=== PATIENT | female | born 1965 | race Caucasian/White ===

== ENCOUNTER 2020-07-20 07:29 | Day surgery (SDC) | payer BC, SELFPAY ==
[~2020-07-20] VITALS: Ht 170.2 cm; Wt 127.9 kg
[2020-07-20] MEDS ORDERED: SIMETHICONE 40 MG/0.6 ML ML ONE (07:47)
[2020-07-20] MEDS: MIDAZOLAM HCL 5 MG/5 ML VIAL ONE ×4 (10:12→10:22)
[2020-07-20] MEDS: fentaNYL CITRATE/PF 100 MCG/2 ML AMP ONE ×3 (10:13→10:20)
[2020-07-20 13:19] VITALS: BP_SYST 114
== END 2020-07-20 11:47 | disposition home or self-care (01) ==
LOC: SDS 07:29 → SMU 07:29 → SDS 11:47
PROVIDERS: ATTEND Internal Medicine
DX: R19.7 Diarrhea, unspecified (principal); D12.2 Benign neoplasm of ascending colon; R19.4 Change in bowel habit; K44.9 Diaphragmatic hernia without obstruction or gangrene; E11.9 Type 2 diabetes mellitus without complications; K21.9 Gastro-esophageal reflux disease without esophagitis; E78.00 Pure hypercholesterolemia, unspecified; Z20.828 Contact with and (suspected) exposure to other viral communicable diseases
CPT/HCPCS: 45380; 45385; 88305; 99152; G0378; J2250; J3010; J7030; U0003